=== PATIENT | female | born 1950 | race Caucasian/White ===

== ENCOUNTER → 2018-01-13 | Outpatient (CLI) | payer OTHER | END | disposition home or self-care (01) | LOC: NUC 08:39 | DX: M47.896 Other spondylosis, lumbar region (principal); G89.29 Other chronic pain; M81.0 Age-related osteoporosis without current pathological fracture; Z96.698 Presence of other orthopedic joint implants; M19.90 Unspecified osteoarthritis, unspecified site; Z98.890 Other specified postprocedural states | CPT/HCPCS: 78315; A9503 ==

== ENCOUNTER 2018-05-06 20:55 | Inpatient (IN) | payer OTHER ==
[~2018-05-06] VITALS: Ht 157.5 cm; Wt 54.3 kg
[2018-05-06 21:57] LABS: HEMATOCRIT 32.4 % (36.0-46.0); HEMOGLOBIN 10.8 G/DL (11.9-15.5); MCH 29.8 PG (29.0-34.0); MCHC 33.3 G/DL (30.0-36.0); MCV 89.5 FL (83-99); RBC DIS.WIDTH-CV 13.8 % (11.8-14.6); RBC DIS.WIDTH-SD 45.7 % (39-53); RED BLOOD COUNT 3.62 M/uL (3.80-5.20); WHITE BLOOD COUNT 6.4 K/uL (4.1-10.2)
[2018-05-06 22:10] LABS: CHLORIDE 110 mEq/L (99-109); POTASSIUM 3.8 mEq/L (3.7-5.4); SODIUM 140 mEq/L (136-147)
[2018-05-06 22:12] LABS: GLUCOSE 110 mg/dL (70-99)
[2018-05-06 22:16] LABS: CREATININE 0.9 mg/dL (0.6-1.3); GFR ESTIMATE (CALCULATED) > 59 mL/min/; UREA NITROGEN (BUN) 12 mg/dL (9-23)
[2018-05-06 22:20] LABS: TROP-I INTERPRETATION NEGATIVE; TROPONIN-I < 0.01 ng/mL (0.0-0.30)
[2018-05-06 22:51] LABS: PLAT.SUFFICIENCY ADEQUATE; PLATELET COUNT 199 K/uL (156-360)
[2018-05-06] MEDS ORDERED: IBUPROFEN800 MG PO (23:22)
[2018-05-06] MEDS ORDERED: BUTRANS1 EAC1 TD (23:22)
[2018-05-06] MEDS ORDERED: SERTRALINE HCL100 MG PO (23:23)
[2018-05-06] MEDS ORDERED: VITAMIN D22000 UNIT PO (23:23)
[2018-05-06] MEDS ORDERED: ESOMEPRAZOLE MA40 MG PO (23:24)
[2018-05-06] MEDS ORDERED: LO-DOSE ASPIRIN81 M2 PO (23:24)
[2018-05-06] MEDS ORDERED: SKELAXIN800 MG PO (23:25)
[2018-05-06] MEDS ORDERED: WOMEN'S 50 PLU1 EACH PO (23:26)
[2018-05-06] MEDS ORDERED: PROLIA60 MG/1 ML SC (23:32)
[2018-05-07 00:13] LABS: SERUM ETHYL ALCOHOL < 10 mg/dL
[2018-05-07 00:52] VITALS: BP 146/63
[2018-05-07 07:24] VITALS: BP 141/93
[2018-05-07 11:30] LABS: TROP-I INTERPRETATION NEGATIVE; TROPONIN-I < 0.01 ng/mL (0.0-0.30)
[2018-05-07 11:38] VITALS: BP 178/77
[2018-05-07 13:21] VITALS: BP 131/60
[2018-05-07 16:13] VITALS: BP 134/69
[2018-05-07 19:33] VITALS: BP 130/60
[2018-05-08] VITALS (7 sets, daily range): BP systolic 120–152; BP diastolic 58–78
[2018-05-08 05:46] LABS: BASOPHIL (%) 0.6 % (0-1); EOSINOPHIL (%) 1.3 % (0-5); EOSINOPHIL COUNT 0.1 K/uL (0-0.3); HEMATOCRIT 29.8 % (36.0-46.0); HEMOGLOBIN 9.7 G/DL (11.9-15.5); IMMATURE GRANULOCYTE (%) 0.5 % (0.0-0.7); LYMPHOCYTE (%) 33.8 % (15-42); LYMPHOCYTE COUNT 2.2 K/uL (1.0-2.8); MCH 29.1 PG (29.0-34.0); MCHC 32.6 G/DL (30.0-36.0); MCV 89.5 FL (83-99); MONOCYTE (%) 9.7 % (3-12); MONOCYTE COUNT 0.6 K/uL (0-0.8); NEUTROPHIL (%) 54.1 % (45-76); NEUTROPHIL COUNT 3.4 K/uL (1.8-6.4); PLATELET COUNT 187 K/uL (156-360); RBC DIS.WIDTH-CV 14.2 % (11.8-14.6); RBC DIS.WIDTH-SD 46.1 % (39-53); RED BLOOD COUNT 3.33 M/uL (3.80-5.20); WHITE BLOOD COUNT 6.4 K/uL (4.1-10.2)
[2018-05-08 06:16] LABS: CHLORIDE 110 MEQ/L (99-109); CREATININE 0.7 MG/DL (0.6-1.3); GFR ESTIMATE (CALCULATED) > 59 mL/min/; GLUCOSE 98 mg/dL (70-99); SODIUM 139 MEQ/L (136-147); UREA NITROGEN (BUN) 7 mg/dL (9-23)
[2018-05-08 10:14] LABS: APPEARANCE SL.HAZY ((CLEAR)); BILIRUBIN NEGATIVE; BLOOD NEGATIVE; COLOR YELLOW ((YELLOW)); GLUCOSE (STRIP) NEGATIVE; KETONES NEGATIVE; LEUKOCYTES MODERATE; NITRITE POSITIVE; PROTEIN (STRIP) NEGATIVE; SPECIFIC GRAVITY 1.012 (1.000-1.030); UROBILINOGEN 0.2 MG/DL (0.2-1.0)
[2018-05-08 10:27] LABS: BACTERIA 3+ /HPF; EPITHELIAL CELLS RARE /HPF; MUCUS TRACE /LPF; RED BLOOD CELLS 0-5 /HPF (0-5); UCUL ADDED? YES; WHITE BLOOD CELLS 40-50 /HPF (0-5)
[2018-05-08 10:37] LABS: BENZODIAZEPINES, URINE SCREEN Negative (200 ng/mL)
[2018-05-09 03:43] VITALS: BP 152/79
[2018-05-09 05:24] LABS: BASOPHIL (%) 0.4 % (0-1); EOSINOPHIL (%) 1.2 % (0-5); EOSINOPHIL COUNT 0.1 K/uL (0-0.3); HEMOGLOBIN 9.7 G/DL (11.9-15.5); IMMATURE GRANULOCYTE (%) 0.2 % (0.0-0.7); LYMPHOCYTE (%) 25.6 % (15-42); LYMPHOCYTE COUNT 1.3 K/uL (1.0-2.8); MCHC 32.3 G/DL (30.0-36.0); MCV 89.6 FL (83-99); MONOCYTE (%) 11.5 % (3-12); MONOCYTE COUNT 0.6 K/uL (0-0.8); NEUTROPHIL (%) 61.1 % (45-76); PLATELET COUNT 170 K/uL (156-360); RBC DIS.WIDTH-CV 14.1 % (11.8-14.6); RBC DIS.WIDTH-SD 45.8 % (39-53); RED BLOOD COUNT 3.35 M/uL (3.80-5.20); WHITE BLOOD COUNT 4.9 K/uL (4.1-10.2)
[2018-05-09 05:52] LABS: CHLORIDE 109 MEQ/L (99-109); CREATININE 0.7 MG/DL (0.6-1.3); GFR ESTIMATE (CALCULATED) > 59 mL/min/; GLUCOSE 107 mg/dL (70-99); POTASSIUM 3.6 MEQ/L (3.7-5.4); SODIUM 139 MEQ/L (136-147); UREA NITROGEN (BUN) 7 mg/dL (9-23)
[2018-05-09 07:17] VITALS: BP 137/76
[2018-05-09] MEDS ORDERED: BACITRACIN28.4 GM TP (09:05)
[2018-05-09] MEDS ORDERED: BACLOFEN10 MG PO (09:06)
[2018-05-09] MEDS ORDERED: NAPROXEN500 MG PO (09:07)
[2018-05-09 11:29] VITALS: BP 145/63
== END 2018-05-09 14:22 | disposition home or self-care (01) | DRG 185 ==
LOC: EME 20:55 → 4SOUTH 23:28 → EDOF 23:28 → ENRESERV 23:29 → 4SOUTH 05-07 00:39
PROVIDERS: Emergency Medicine; Internal Medicine; Physician Assistant Medical
DX: S22.49XA Multiple fractures of ribs, unspecified side, initial encounter for closed fracture (principal); S01.01XA Laceration without foreign body of scalp, initial encounter; S20.211A Contusion of right front wall of thorax, initial encounter; W18.30XA Fall on same level, unspecified, initial encounter; K21.9 Gastro-esophageal reflux disease without esophagitis; M54.5 Low back pain; R55 Syncope and collapse; R94.31 Abnormal electrocardiogram [ECG] [EKG]; F41.9 Anxiety disorder, unspecified; F32.9 Major depressive disorder, single episode, unspecified; G89.29 Other chronic pain; M81.0 Age-related osteoporosis without current pathological fracture; Y92.000 Kitchen of unspecified non-institutional (private) residence as the place of occurrence of the external cause; Z82.41 Family history of sudden cardiac death; Y93.G1 Activity, food preparation and clean up; Z90.710 Acquired absence of both cervix and uterus; Z79.899 Other long term (current) drug therapy; Z79.82 Long term (current) use of aspirin
CPT/HCPCS: 70450; 70544; 70545; 70549; 70551; 71045; 71260; 72125; 74177; 80048; 80306 90; 81003; 82272; 83880; 84484; 85025; 85027; 85610; 85730; 87077; 87086; 87186; 93005; 93306; 95819; 99281; 99285; G0378; G0480; J0360; J1650; J2405; J2765; J3010; J7030

== ENCOUNTER 2018-06-21 11:55 | Day surgery (SDC) | payer OTHER ==
[~2018-06-21] VITALS: Ht 152.4 cm; Wt 50.8 kg
[~2018-06-21 11:55] MED LIST: BACITRACIN28.4 GM TP; BACLOFEN10 MG PO; BUTRANS1 EAC1 TD; CALCIUM 600 +1 EAC2 PO; ESOMEPRAZOLE MA40 MG PO; IBUPROFEN800 MG PO; LO-DOSE ASPIRIN81 M2 PO; NAPROXEN500 MG PO; PROLIA60 MG/1 ML SC; SERTRALINE HCL100 MG PO; SKELAXIN800 MG PO; VITAMIN D31000 UNI2 PO; WOMEN'S 50 PLU1 EACH PO
== END 2018-06-21 14:35 | disposition home or self-care (01) ==
LOC: CATH 11:55
PROC: 0JH602Z Insertion of Monitoring Device into Chest Subcutaneous Tissue and Fascia, Open Approach (ICD-10-PCS; principal; 2018-06-21)
DX: R55 Syncope and collapse (principal); K21.9 Gastro-esophageal reflux disease without esophagitis; G89.29 Other chronic pain; Z79.82 Long term (current) use of aspirin
CPT/HCPCS: C1764; J0690; J1200; J2250; J3010; S0020